=== PATIENT | female | born 1970 | race American Indian/Alaskan Native ===

== ENCOUNTER 2017-04-13 18:55 | Emergency (ER) | payer OTHER ==
[2017-04-13 19:02] VITALS: O2SAT 99
[2017-04-13 19:06] VITALS: BMI 14.9
[2017-04-13 19:10] VITALS: RESP 18
[2017-04-13] MEDS ORDERED: Albuterol-Ipratrop 3 mg / 0.5 (3 ml) UD ONE (19:39)
[2017-04-13] MEDS ORDERED: Promethazine/Cod 6.25mg-10mg/5ml Syr UD PO STA (19:53)
[2017-04-13] MEDS: Albuterol-Ipratrop 3 mg / 0.5 (3 ml) UD IH SCH ×2 (20:00→20:10)
[2017-04-13] MEDS ORDERED: Promethazine/Cod 6.25mg-10mg/5ml Syr UD ONE (20:24)
--- NOTE | 2017-04-13 20:25 | C.PDOC ---
History Of Present Illness A 47 y/o female presents to the ER c/o dry cough for a week. Pt was seen by her PMD 4 days ago and was prescribed cough syrup with no relief. Pt reports feeling congestion now but denies fever, chills, chest pain, SOB, ear pain, recent travels, or any other complaints. Time Seen by Provider: 04/13/17 19:29 Chief Complaint (Nursing): Cough, Cold, Congestion History Per: Patient History/Exam Limitations: no limitations Onset/Duration Of Symptoms: Days Current Symptoms Are (Timing): Still Present Location Of Pain: None Associated Symptoms: Other (congestion) Severity: Mild Recent travel outside of the [place]: No Additional History Per: Patient Past Medical History Reviewed: Historical Data, Nursing Documentation, Vital Signs Vital Signs: Last Vital Signs Temp 98.2 F 04/13/17 21:06 Pulse 78 04/13/17 21:06 Resp 18 04/13/17 21:06 BP 159/102 H 04/13/17 21:06 Pulse Ox 99 04/13/17 21:06 - Medical History PMH: HTN, Peripheral Edema Family History: States: Unknown Family Hx - Social History Hx Tobacco Use: No Hx Alcohol Use: Yes Hx Substance Use: No - Immunization History Hx Tetanus Toxoid Vaccination: No Hx Influenza Vaccination: Yes (2014) Hx Pneumococcal Vaccination: No Review Of Systems Constitutional: Negative for: Fever, Chills ENT: Negative for: Ear Pain, Nose Discharge, Throat Pain Cardiovascular: Positive for: Other (Congestion). Negative for: Chest Pain Respiratory: Positive for: Cough (Dry cough). Negative for: Shortness of Breath Physical Exam - Physical Exam Appears: Non-toxic, No Acute Distress Skin: Warm, Dry Head: Atraumatic, Normacephalic Eye(s): bilateral: Normal Inspection Oral Mucosa: Moist Throat: Normal, No Exudate Cardiovascular: Rhythm Regular, No Murmur Respiratory: Normal Breath Sounds, No Accessory Muscle Use, No Rhonchi, No Wheezing, Other (Congestion) Neurological/Psych: Oriented x3, Normal Speech, Normal Cognition, Other (No focal deficit) Gait: Steady ED Course And Treatment O2 Sat by Pulse Oximetry: 99 (RA) Pulse Ox Interpretation: Normal Progress Note: Impression: 47 y/o female c/o dry cough for a week. Plans: Duonebs X2, PredniSONE, and codeine, CXR, Reassess. Pt is in no acute distress at this time. Pt cough has improve and was instructed to visit her PMD if symptoms persists. Disposition - Disposition Disposition: HOME/ ROUTINE Disposition Time: 20:42 Condition: STABLE Additional Instructions: Please increase PO fluids Take meds as directed Follow up with PMD Return to ER if worse Prescriptions: Albuterol HFA [Ventolin HFA 90 mcg/actuation (8 g)] 2 puff IH [id number] #1 inhaler Azithromycin [Zithromax] 250 mg PO DAILY #6 tab Cetirizine HCl [Zyrtec] 10 mg PO DAILY #20 capsule predniSONE [Prednisone] 40 mg PO DAILY #10 tab Promethazine/Codeine [Codeine/Promethazine 10 MG/5 Ml-6.25 MG/5 Ml] 5 ml PO QID #120 ml Instructions: Acute Bronchitis (ED) Forms: Work Excuse - Clinical Impression Clinical Impression: Bronchitis - Scribe Statement The provider has reviewed the documentation as recorded by the Zaneibshane andersen All medical record entries made by the Zaneibshane were at my direction and personally dictated by me. I have reviewed the chart and agree that the record accurately reflects my personal performance of the history, physical exam, medical decision making, and the department course for this patient. I have also personally directed, reviewed, and agree with the discharge instructions and disposition.
[2017-04-13 21:07] VITALS: BP 159/102; PULSE 78; TEMP 98.2
--- NOTE | 2017-04-14 09:42 | RAD ---
HISTORY: cough, chest congestion COMPARISON: 05/17/2015 TECHNIQUE: Chest PA and lateral FINDINGS: LUNGS: The lungs are well inflated and clear. PLEURA: No significant pleural effusion identified. No pneumothorax apparent. CARDIOVASCULAR: Normal. OSSEOUS STRUCTURES: No significant abnormalities. VISUALIZED UPPER ABDOMEN: Normal. OTHER FINDINGS: None. IMPRESSION: No active pulmonary disease.
== END 2017-04-13 21:09 | disposition home or self-care (01) ==
LOC: C.ER 18:55 → SUPCPDRO 18:55 → C.ER 21:09
DX: J40 Bronchitis, not specified as acute or chronic (principal)

== ENCOUNTER 2018-04-10 08:29 | Emergency (ER) | payer OTHER ==
[2018-04-10 08:53] VITALS: BMI 34.2
[2018-04-10 09:14] LABS: SQUAMOUS EPITHIAL 2 /hpf (0-5); URINE BACTERIA RARE (<OCC); URINE BILIRUBIN NEGATIVE (NEGATIVE); URINE BLOOD 1+ (NEGATIVE); URINE COLOR Yellow (YELLOW); URINE GLUCOSE (UA) NORMAL (Normal); URINE LEUKOCYTE ESTERASE 2+ Leu/uL (Negative); URINE PROTEIN NEGATIVE (NEGATIVE); URINE UROBILINOGEN NORMAL mg/dL (0.2-1.0)
[2018-04-10 09:18] LABS: URINE CLARITY SLHAZY (Clear)
--- NOTE | 2018-04-10 09:29 | C.PDOC ---
History Of Present Illness 48-year-old female, presents to the emergency department with complaints of dysuria and urinary frequency that started this morning. Patient states she had a history of similar symptoms 5+ years ago, when she was diagnosed with a UTI. Additionally, pt reports she has a Hx of hypertension, but did not take her medication this morning. She denies any fever, back pain, nausea/vomiting, pelvic pain, chest pain, shortness of breath, headache, dizziness, vaginal discharge or any other associated symptoms. No other complaints at this time. Of note, pt had a hysterectomy two weeks ago- notes it is feeling well and has no pelvic pain or fever. Time Seen by Provider: 04/10/18 08:32 Chief Complaint (Nursing): Female Genitourinary History Per: Patient History/Exam Limitations: no limitations Current Symptoms Are (Timing): Still Present Past Medical History Reviewed: Historical Data, Nursing Documentation, Vital Signs Vital Signs: Last Vital Signs Temp 98.4 F 04/10/18 10:00 Pulse 76 04/10/18 10:00 Resp 20 04/10/18 10:00 BP 163/97 H 04/10/18 10:00 Pulse Ox 98 04/10/18 10:57 - Medical History PMH: HTN, Peripheral Edema Family History: States: No Known Family Hx - Social History Hx Tobacco Use: No Hx Alcohol Use: Yes Hx Substance Use: No - Immunization History Hx Tetanus Toxoid Vaccination: No Hx Influenza Vaccination: Yes (2014) Hx Pneumococcal Vaccination: No Review Of Systems Constitutional: Negative for: Fever, Chills Cardiovascular: Negative for: Chest Pain, Palpitations Respiratory: Negative for: Cough, Shortness of Breath Gastrointestinal: Negative for: Nausea, Vomiting, Abdominal Pain Genitourinary: Positive for: Dysuria, Frequency. Negative for: Vaginal Bleeding , Pelvic Pain Musculoskeletal: Negative for: Back Pain Skin: Negative for: Rash Neurological: Negative for: Weakness, Headache, Dizziness Physical Exam - Physical Exam Appears: Non-toxic, No Acute Distress Skin: Normal Color, Warm, Dry, No Rash Head: Atraumatic, Normacephalic Eye(s): bilateral: Normal Inspection, EOMI Nose: Normal Oral Mucosa: Moist Lips: Normal Appearing Neck: Normal ROM, Supple Chest: Symmetrical Cardiovascular: Rhythm Regular Respiratory: Normal Breath Sounds, No Accessory Muscle Use Gastrointestinal/Abdominal: Soft, No Tenderness, Other (healed surgical incision to suprapubic area, no erythema, discharge, warmth, or tenderness) Extremity: Normal ROM, No Deformity, No Swelling Neurological/Psych: Oriented x3, Normal Speech ED Course And Treatment O2 Sat by Pulse Oximetry: 98 (RA) Pulse Ox Interpretation: Normal Progress Note: UA/u-Culture ordered and reviewed (+) for UTI. Pt treated with Macrobid and Pyridium, Zestril for blood pressure. Notes she did not take her BP medication with morning. On re-evaluation, Patient is resting comfortably, and is in no acute distress. Patient was instructed to follow up with PMD in 1- 2 days for further evaluation. Instructed to return to ER if symptoms persist or worsen. Disposition - Disposition Disposition: HOME/ ROUTINE Disposition Time: 09:27 Condition: STABLE Additional Instructions: Follow up with your PMD in 1-2 days. Return to ER if symptoms persist or worsen. Prescriptions: Nitrofurantoin Macrocrystals [Macrobid] 1 cap PO BID #14 cap Phenazopyridine HCl [Pyridium] 100 mg PO TID #6 tablet Instructions: Urinary Tract Infection, Adult (DC) Forms: [place] ([place]) - Clinical Impression Clinical Impression: UTI (urinary tract infection), Hypertension - Scribe Statement The provider has reviewed the documentation as recorded by the Scribe (Mili Denton) All medical record entries made by the Scribe were at my direction and personally dictated by me. I have reviewed the chart and agree that the record accurately reflects my personal performance of the history, physical exam, medical decision making, and the department course for this patient. I have also personally directed, reviewed, and agree with the discharge instructions and disposition.
[2018-04-10 10:13] VITALS: BP 163/97; PULSE 76; RESP 20; TEMP 98.4
[2018-04-10 10:51] VITALS: O2SAT 98
== END 2018-04-10 10:01 | disposition home or self-care (01) ==
LOC: C.ER 08:29
DX: N39.0 Urinary tract infection, site not specified (principal); I10 Essential (primary) hypertension